=== PATIENT | male | born 2000 | race Caucasian/White ===

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

== ENCOUNTER 2020-01-03 20:04 | Emergency (ER) | payer OTHER ==
[~2020-01-03] VITALS: Ht 188 cm; Wt 65.8 kg
[~2020-01-03 20:04] MED LIST changes: +ARIP15 PO
== END 2020-01-03 21:55 | disposition home or self-care (01) ==
LOC: ER 20:04
DX: L30.9 Dermatitis, unspecified (principal); F17.210 Nicotine dependence, cigarettes, uncomplicated; Z20.6 Contact with and (suspected) exposure to human immunodeficiency virus [HIV]; Z88.0 Allergy status to penicillin; Z79.899 Other long term (current) drug therapy
CPT/HCPCS: 99283

== ENCOUNTER → 2020-01-15 | Outpatient (CLI) | payer OTHER ==
[2020-01-18 05:09] LABS: CHLAMYDIA TRACHOMATIS, NAA Negative (Negative); NEISSERIA GONORRHOEAE, NAA Negative (Negative)
== END | disposition home or self-care (01) ==
LOC: LAB SHORT 15:50 → LAB 15:50
PROVIDERS: Nurse Practitioner
DX: Z20.2 Contact with and (suspected) exposure to infections with a predominantly sexual mode of transmission (principal)
CPT/HCPCS: 87491; 87591

== ENCOUNTER 2020-05-23 18:59 | Emergency (ER) | payer OTHER ==
[~2020-05-23] VITALS: Ht 188 cm; Wt 68.0 kg
[2020-05-23] MEDS ORDERED: Prednisone20 MG PO (19:38)
== END 2020-05-23 20:12 | disposition home or self-care (01) ==
LOC: ER 18:59
DX: L23.7 Allergic contact dermatitis due to plants, except food (principal); F17.210 Nicotine dependence, cigarettes, uncomplicated; Z79.899 Other long term (current) drug therapy; Z88.0 Allergy status to penicillin; Z88.1 Allergy status to other antibiotic agents; Z88.8 Allergy status to other drugs, medicaments and biological substances; Z91.041 Radiographic dye allergy status
CPT/HCPCS: 99283; J7512